=== PATIENT | female | born 1975 | race Caucasian/White ===

== ENCOUNTER 2018-01-30 06:48 | Day surgery (SDC) | payer OTHER ==
[2018-01-29 12:05] LABS: BILIRUBIN,URINE NEGATIVE (NEGATIVE); BLOOD, URINE 1+ (NEGATIVE); CLARITY/URINE CLEAR (CLEAR); COLOR,URINE YELLOW (YELLOW); GLUCOSE,URINE NEGATIVE (NEGATIVE); KETONES,URINE NEGATIVE (NEGATIVE); LEUKOCYTE ESTERASE ,URINE NEGATIVE (NEGATIVE); NITRITE, URINE NEGATIVE (NEGATIVE); PROTEIN URINE NEGATIVE (NEGATIVE); UROBILINOGEN,URINE 0.2 (0.2-1.0)
[2018-01-29 12:18] LABS: HEMATOCRIT 40.4 % (36-48); HEMOGLOBIN 12.8 g/dL (12.0-16.0); MEAN CORPUSCULAR HEMOGLOBIN 26 pg (27-31); MEAN CORPUSCULAR HGB CONC 32 % (32-36); MEAN CORPUSCULAR VOLUME 83 fL (79.0-98.0); PLATELET COUNT (AUTO) 313 K/uL (130-430); RED BLOOD CELL COUNT(AUTO) 4.89 MIL/uL (4.2-6.2); RED CELL DISTRIBUTION WIDTH 16.3 % (9.0-15.0); WHITE BLOOD COUNT (AUTO) 4.1 K/uL (4.8-10.8)
[2018-01-29 12:27] LABS: CALCIUM 9.2 mg/dL (8.4-11.0); CREATININE 0.65 mg/dL (0.55-1.30); POTASSIUM 3.5 mmol/L (3.5-5.1); TOTAL BILIRUBIN 0.7 mg/dL (0.0-1.0)
[2018-01-29 12:38] LABS: WBC,URINE 0-3 /HPF (0-3)
[2018-01-29 12:39] LABS: BACTERIA,URINE RARE /HPF (None Seen)
[2018-01-29 13:07] LABS: LYMPHOCYTES % (MANUAL) 33 % (20-46)
[2018-01-29 13:08] LABS: ATYPICAL LYMPHOCYTES % 3 % (0-0); BASOPHILS % (MANUAL) 0 % (0-2); EOSINOPHILS % (MANUAL) 2 % (0-7); MONOCYTES % (MANUAL) 10 % (0-11)
[~2018-01-30] VITALS: Ht 154.9 cm; Wt 61.7 kg
[2018-01-30] MEDS ORDERED: PROPOFOL 200MG/ 20ML VIAL (DIPRIVAN) IV ONE (08:40)
[2018-01-30] MEDS ORDERED: ONDANSETRON HCL 4 MG/2 ML VIAL IVP ONE (08:40)
[2018-01-30] MEDS ORDERED: MIVACURIUM CHLORIDE 20 MG/10 ML VIAL (MIVACRON) INJ ONE (08:40)
[2018-01-30] MEDS ORDERED: fentaNYL CITRATE/PF 100 MCG/2 ML AMP IVP ONE (08:40)
[2018-01-30] MEDS ORDERED: LR 1,000 ML IV.SOLN IV ONE (08:40)
[2018-01-30] MEDS ORDERED: MIDAZOLAM HCL 5 MG/5 ML VIAL IVP ONE (08:40)
[2018-01-30] MEDS ORDERED: KETOROLAC TROMETHAMINE 30 MG VIAL IVP ONE (08:40)
[2018-01-30] MEDS ORDERED: NS 1000 ML IV.SOLN IV ONE (08:40)
[2018-01-30] MEDS ORDERED: SEVOFLURANE 15 MIN GAS INH ONE (08:40)
[2018-01-30] MEDS ORDERED: LR 1,000 ML IV SCH (09:12)
[2018-01-30] MEDS ORDERED: MORPHINE 4 MG/ML INJ. SYRINGE IVP PRN ×3 (09:15)
[2018-01-30] MEDS ORDERED: METOCLOPRAMIDE HCL 10 MG/2 ML VIAL IVP PRN (09:15)
[2018-01-30] MEDS ORDERED: OXYCODONE/ACETAMINOPHEN 5-325 TABLET PO PRN ×2 (09:45)
[2018-01-30] MEDS ORDERED: ONDANSETRON HCL 4 MG/2 ML VIAL IVP PRN (09:45)
[2018-01-30 10:31] VITALS: BP_SYST 118
== END 2018-01-30 11:50 | disposition home or self-care (01) ==
LOC: SDS 06:48 → SMU 06:48 → SDS 11:50
PROVIDERS: ATTEND Obstetrics & Gynecology
DX: N84.0 Polyp of corpus uteri (principal); G56.00 Carpal tunnel syndrome, unspecified upper limb; N83.201 Unspecified ovarian cyst, right side; J30.2 Other seasonal allergic rhinitis; Z88.0 Allergy status to penicillin; Z79.899 Other long term (current) drug therapy
CPT/HCPCS: 36415; 58563; 80053; 81000; 84703; 85007; 85027; 86886; 86900; 86901; 88305; C1819; J1885; J2250; J2405; J2704; J3010; J7030; J7120